=== PATIENT | male | born 1995 | race Caucasian/White ===

== ENCOUNTER 2017-10-15 03:10 | Emergency (ER) | payer OTHER ==
[2017-10-15] MEDS ORDERED: NORMAL SALINE 500 ML IV ONE (03:15)
[2017-10-15] MEDS ORDERED: ONDANSETRON HCL INJ/PF 4 MG/2 ML SDV IV ONE (03:16)
[2017-10-15 03:56] LABS: ABSOLUTE BASOPHILS # (AUTO) 0.1 10^3/uL (0.0-0.2); ABSOLUTE EOSINOPHILS # (AUTO) 0.2 10^3/uL (0.0-0.6); ABSOLUTE LYMPHOCYTES (AUTO) 2.2 10^3/uL (0.5-4.7); ABSOLUTE MONOCYTES (AUTO) 0.4 10^3/uL (0.1-1.4); ABSOLUTE NEUT (AUTO) 2.9 10^3/uL (1.7-8.2); EOSINOPHILS % (AUTO) 3.5 % (0-6); HEMATOCRIT 39.5 % (37.9-51.0); HEMOGLOBIN 13.4 g/dL (13.5-17.0); LYMPHOCYTES % (AUTO) 38.2 % (13-45); MEAN CORPUSCULAR HEMOGLOBIN 30.1 pg (27.0-33.4); MEAN CORPUSCULAR VOLUME 89 fl (80-97); MONOCYTES % (AUTO) 6.8 % (3-13); PLATELET COUNT 204 10^3/uL (150-450); RED BLOOD COUNT 4.46 10^6/uL (4.35-5.55); RED CELL DISTRIBUTION WIDTH 13.6 % (11.5-14.0); SEGMENTED NEUTROPHILS % (AUTO) 50.5 % (42-78); TOTAL CELLS COUNTED % (AUTO) 100 %; WHITE BLOOD COUNT 5.8 10^3/uL (4.0-10.5)
--- NOTE | 2017-10-15 04:01 | ER Document Report ---
ED General <CHRIS FOLEY - Last Filed: 10/15/17 05:55> <SATYA HUBER - Last Filed: 10/15/17 09:46> - General Chief Complaint: ETOH Abuse Stated Complaint: ETOL ABUSE Time Seen by Provider: 10/15/17 03:15 Notes: Patient is a 22-year-old male who is brought in by a months because of altered mental status due to large amount of alcohol intake and also taking multiple tablets of Valium. Valium is prescribed to him for back pain. Patient apparently has been drinking a lot tonight and then took a handful of Valium. It is unclear exactly how he took. Patient told paramedics he did not do this to hurt himself. Ambulance was called by a friend and the paramedics said that they were unsure if they were trying to hurt himself or not. (CHRIS FOLEY) Past Medical History - Social History Smoking Status: Unknown if Ever Smoked Frequency of alcohol use: unknown how often Drug Abuse: Prescription drugs <CHRIS FOLEY - Last Filed: 10/15/17 05:55> - Social History Smoking Status: Unknown if Ever Smoked Family History: Reviewed & Not Pertinent <SATYA HUBER - Last Filed: 10/15/17 09:46> Review of Systems - Review of Systems -: Yes ROS unobtainable due to patient's medical condition - Patient currently unresponsive. <CHRIS FOLEY - Last Filed: 10/15/17 05:55> Physical Exam <CHRIS FOLEY - Last Filed: 10/15/17 05:55> <SATYA HUBER E - Last Filed: 10/15/17 09:46> - Vital signs Vitals: Resp Pulse Ox 16 98 10/15/17 03:48 10/15/17 03:48 - Notes Notes: General Appearance: Well nourished, sedated. No distress. Vitals: reviewed, See vital signs table. Head: no swelling or tenderness to the head Eyes: PERRL, EOMI, Conjuctiva clear Mouth: No decreasd moisture Throat: No tonsillar inflammation, No airway obstruction, Neck: Supple, no neck tenderness, No thyromegaly Lungs: No wheezing, No rales, No rhonci, No accessory muscle use, good air exchange bilaterally. Heart: Normal rate, Regular rythm, No murmur, no rub Abdomen: Normal BS, soft, No rigidity, No abdominal tenderness, No guarding, no rebound, no abdominal masses, no organomegaly Extremities: good pulses in all extremities, no swelling or deformity in the extremities, no edema. Skin: warm, dry, appropriate color, no rash Neuro: Patient is sedated because he just received Versed and Haldol from paramedics. He will respond some to sternal rub. He does have a gag reflex. He will not respond to verbal stimuli at this time. (CHRIS FOLEY) Course - Laboratory Result Diagrams: 10/15/17 03:45 10/15/17 04:30 <CHRIS FOLEY - Last Filed: 10/15/17 05:55> - Laboratory Result Diagrams: 10/15/17 03:45 10/15/17 04:30 <SATYA HUBER - Last Filed: 10/15/17 09:46> - Re-evaluation Re-evalutation: 10/15/17 04:01 EKG is reviewed and interpreted by me. EKG shows sinus rhythm with a rate of [address] segment elevation or depression. No ischemic T-wave inversions. NH interval, QRS intervals are within normal range. QRS duration is slightly prolonged. No old EKG available for comparison. 10/15/17 05:17 Patient will still move with sternal rub on reevaluation. Vital signs are stable. No response to verbal stimuli alone. 10/15/17 05:55 We will wait for patient to become fully coherent. Once he is fully coherent plan is to have the patient reevaluated to make sure that he did not have any thoughts of suicide or attempted suicide when took the Valium. If the patient is acting appropriately and has no indication of suicide attempt to her severe depression then he will be discharged home. (CHRIS FOLEY) 10/15/17 09:46 Pt awake and walking around emergency room with a steady gait. He appears clinically sober at this time. Spoke to him about the dangers of alcohol and benzodiazepines and he understands. He is sorry for his actions last night. (SATYA HUBER) - Vital Signs Vital signs: Temp Pulse Resp BP Pulse Ox 18 109/68 99 10/15/17 09:01 10/15/17 09:00 10/15/17 09:01 - Laboratory Laboratory results interpreted by me: 10/15/17 10/15/17 03:45 04:30 Hgb 13.4 L Sodium 149.4 H Chloride 111 H Alkaline Phosphatase 29 L Salicylates < 1.0 L Acetaminophen < 10 L Discharge <CHRIS FOLEY - Last Filed: 10/15/17 05:55> <SATYA HUBER - Last Filed: 10/15/17 09:46> - Discharge Clinical Impression: Alcohol intoxication Qualifiers: Complication of substance-induced condition: with delirium Qualified Code(s): F10.921 - Alcohol use, unspecified with intoxication delirium Condition: Stable Disposition: HOME, SELF-CARE Additional Instructions: Please do not drink large amounts of alcohol. Please do not take prescription medications when you drink alcohol as this can lead to difficulty breathing and confusion. Plesse return to the ER if you have any further concerns or feel unwell. Forms: Return to Work Referrals: [facility] [Outside] - Follow up as needed
[2017-10-15 05:02] LABS: ALANINE AMINOTRANSFERASE 38 U/L (21-72); ALBUMIN 4.4 g/dL (3.5-5.0); ALCOHOL 298 mg/dL (NONE DETECTED); ALKALINE PHOSPHATASE 29 U/L (38-126); ANION GAP 16 (5-19); ASPARTATE AMINO TRANSFERASE 26 U/L (17-59); BILIRUBIN,DIRECT 0.1 mg/dL (0.0-0.4); BILIRUBIN,TOTAL 0.2 mg/dL (0.2-1.3); BLOOD UREA NITROGEN 11 mg/dL (7-20); CALCIUM 8.9 mg/dL (8.4-10.2); CARBON DIOXIDE 22 mmol/L (22-30); CHLORIDE 111 mmol/L (98-107); GLUCOSE 84 mg/dL (75-110); POTASSIUM 4.2 mmol/L (3.6-5.0); SODIUM 149.4 mmol/L (137-145); TOTAL PROTEIN 7.5 g/dL (6.3-8.2)
[2017-10-15 05:05] LABS: ACETAMINOPHEN < 10 ug/mL (10-30); SALICYLATE < 1.0 mg/dL (2.0-20.0)
--- NOTE | 2017-10-15 08:51 | EKG REPORT ---
SEVERITY:- ABNORMAL ECG - SINUS RHYTHM NONSPECIFIC INTRAVENTRICULAR CONDUCTION DELAY : Confirmed by: Andrew Reardon MD 15-Oct-2017 08:50:49
[2017-10-15 10:01] VITALS: BP 109/95
== END 2017-10-15 10:16 | disposition home or self-care (01) ==
LOC: ER 03:10
DX: F10.121 Alcohol abuse with intoxication delirium (principal); M54.9 Dorsalgia, unspecified
CPT/HCPCS: 93005; 99284; 96374; 36415; 80307 ×3; 85025; 80053; 93010; J2405; J7040